=== PATIENT | male | born 1950 | race African-American/Black ===

== ENCOUNTER 2020-12-27 17:09 | Inpatient (IN) | payer OTHER ==
[2020-12-27] MEDS ORDERED: Acetaminophen 325 MG TAB PO PRN (17:57)
[2020-12-27] MEDS ORDERED: Dextrose 50% Abboject 50 ML SYRINGE SLOW IVP PRN (17:57)
[2020-12-27] MEDS ORDERED: Dextrose 5% in Water 1,000 ML IV PRN (17:57)
[2020-12-27] MEDS ORDERED: Ondansetron PF 4 MG/2 ML Vial IVP PRN (17:57)
[2020-12-27] MEDS ORDERED: Nitroglycerin 0.4 MG TAB (25 Tab Bottle) SL PRN (18:01)
[2020-12-27] MEDS ORDERED: hydrALAZINE 20 MG/ML VIAL SLOW IVP PRN (18:21)
[2020-12-27 18:39] VITALS: BMI 25.8
[2020-12-27 20:22] LABS: Troponin I 0.458 ng/mL (< 0.028)
[2020-12-27] MEDS: Pantoprazole 40 MG VIAL IVP SCH (20:40)
[2020-12-27] MEDS: Enoxaparin Sodium 80 MG/0.8 ML SYRINGE SC SCH (20:59)
[2020-12-27 21:07] LABS: INR-International Normal Ratio 0.9; Prothrombin Time 10.5 sec (9.5-12.1)
[2020-12-28 01:06] LABS: Troponin I 1.361 ng/mL (< 0.028)
[2020-12-28 05:02] LABS: #Eosinphils 0.2 10x3/uL (0.0-0.5); #Monocytes 0.8 10x3/uL (0.0-1.1); %Basophils 0.8 % (0.0-2.0); %Eosinophils 4.1 % (0.0-6.0); %Monocytes 14.6 % (0.0-10.0); %Neutrophils 57.3 % (40.0-75.0); Hemoglobin 10.3 g/dL (13.5-17.5); Mean Corpuscular HGB CONC 31.6 g/dL (32.0-36.0); Mean Corpuscular Hemoglobin 27.8 pg (27.0-33.0); Mean Corpuscular Volume 88.1 fl (81.2-95.1); Mean Platelet Volume 9.7 fl (7.4-10.4); Platelet Count 243 10x3/uL (150-450); RBC Distribution Width 13.6 % (11.5-14.5); White Blood Cell (WBC) Count 5.1 10x3/uL (3.5-10.5)
[2020-12-28 05:18] LABS: Anion Gap 12 mmol/L (10-20); BUN (Urea Nitrogen) 17 mg/dL (8.4-25.7); Calc. Creatinine Clearance 50 mL/min (70-130); Calcium 8.8 mg/dL (7.8-10.44); Carbon Dioxide 21 mmol/L (23-31); Chloride 108 mmol/L (98-107); Glucose 279 mg/dL (80-115); Potassium 3.7 mmol/L (3.5-5.1); Sodium 137 mmol/L (136-145)
[2020-12-28 05:43] LABS: Critical Call Chem Troponin I RESULT DECREASING; Troponin I 1.303 ng/mL (< 0.028)
[2020-12-28] MEDS: HumaLOG 300 UNITS/3 ML VIAL SC PRN (06:15)
[2020-12-28] MEDS ORDERED: FLU VACC QS2021-22(65YR UP)/PF 240 MCG/0.7 ML SYRINGE IM ONE (09:00)
[2020-12-28] MEDS: Amlodipine 10 MG TAB PO SCH (09:15)
[2020-12-28] MEDS: Atenolol 25 MG TAB PO SCH ×2 (09:15→20:36)
[2020-12-28] MEDS: Atorvastatin Calcium 40 MG TAB PO SCH (09:16)
[2020-12-28] MEDS: Pantoprazole 40 MG VIAL IVP SCH ×2 (09:17→20:37)
[2020-12-28] MEDS: Ferrous Sulfate 325 MG TAB PO SCH (11:30)
[2020-12-28] MEDS: Enoxaparin Sodium 80 MG/0.8 ML SYRINGE SC SCH ×2 (11:30→20:34)
[2020-12-28] MEDS: Aspirin 81 mg Enteric Coated Tablet PO SCH (11:30)
[2020-12-28] MEDS: Folic Acid 1 MG TAB PO SCH (11:30)
[2020-12-28] MEDS ORDERED: Sodium Chloride 0.9% 1,000 ML IV SCH (12:15)
[2020-12-28] MEDS ORDERED: Communication Order-Pharmacy FS SCH (12:15)
[2020-12-28] MEDS: Sodium Chloride 0.9% 1,000 ML IV SCH (14:15)
[2020-12-28] MEDS: Hydrochlorothiazide 25 MG TAB PO SCH (20:36)
[2020-12-29] MEDS: Sodium Chloride 0.9% 1,000 ML IV SCH ×4 (04:45→20:14)
[2020-12-29 05:42] LABS: #Basophils 0.1 10x3/uL (0.0-0.2); #Eosinphils 0.2 10x3/uL (0.0-0.5); #Monocytes 0.7 10x3/uL (0.0-1.1); #Neutrophils 3.2 10x3/uL (1.5-8.4); %Basophils 1.1 % (0.0-2.0); %Eosinophils 3.9 % (0.0-6.0); %Lymphocytes 25.4 % (18.0-47.0); %Monocytes 12.9 % (0.0-10.0); %Neutrophils 56.3 % (40.0-75.0); Hemoglobin 11.5 g/dL (13.5-17.5); Mean Corpuscular HGB CONC 33.1 g/dL (32.0-36.0); Mean Corpuscular Volume 84.6 fl (81.2-95.1); Mean Platelet Volume 10.1 fl (7.4-10.4); Platelet Count 278 10x3/uL (150-450); RBC Distribution Width 13.8 % (11.5-14.5); White Blood Cell (WBC) Count 5.7 10x3/uL (3.5-10.5)
[2020-12-29 05:54] LABS: PTT 33.2 sec (22.0-33.0); Prothrombin Time 10.6 sec (9.5-12.1)
[2020-12-29 06:06] LABS: ALT (SGPT) 12 U/L (8-55); AST (SGOT) 15 U/L (5-34); Albumin 3.5 g/dL (3.4-4.8); Alkaline Phosphatase 75 U/L (40-110); Anion Gap 14 mmol/L (10-20); BUN (Urea Nitrogen) 16 mg/dL (8.4-25.7); Bilirubin, Total 0.2 mg/dL (0.2-1.2); Calc. Creatinine Clearance 50 mL/min (70-130); Calcium 8.8 mg/dL (7.8-10.44); Carbon Dioxide 20 mmol/L (23-31); Cardiac Risk 7.3 (Less than 4.5); Chloride 107 mmol/L (98-107); Cholesterol 190 mg/dl (< 200 Desired); Globulin 3.6 g/dL (2.4-3.5); Glucose 192 mg/dL (80-115); HDL Cholesterol 26 mg/dL (>60 Neg Risk); Potassium 3.9 mmol/L (3.5-5.1); Protein, Total 7.1 g/dL (5.8-8.1); Sodium 137 mmol/L (136-145); Triglycerides 476 mg/dL (Less than 150)
[2020-12-29] MEDS: glipiZIDE 5 MG TAB PO SCH (07:31)
[2020-12-29] MEDS: Atorvastatin Calcium 40 MG TAB PO SCH (08:58)
[2020-12-29] MEDS: Ferrous Sulfate 325 MG TAB PO SCH (08:58)
[2020-12-29] MEDS: Amlodipine 10 MG TAB PO SCH (08:58)
[2020-12-29] MEDS: Aspirin 81 mg Enteric Coated Tablet PO SCH (08:58)
[2020-12-29] MEDS: Pantoprazole 40 MG VIAL IVP SCH ×2 (08:59→20:44)
[2020-12-29] MEDS: Folic Acid 1 MG TAB PO SCH (08:59)
[2020-12-29] MEDS: Atenolol 25 MG TAB PO SCH ×2 (08:59→20:43)
[2020-12-29] MEDS ORDERED: Nitroglycerin 50 MG/250 ML BOT 250 ML ONE (11:21)
[2020-12-29] MEDS ORDERED: Heparin 10,000 UNITS/ 10 ML VIAL ONE (11:21)
[2020-12-29] MEDS ORDERED: Adenosine 6 MG/2 ML VIAL ONE (11:22)
[2020-12-29] MEDS ORDERED: Lidocaine 1% PF 5 ML VIAL ONE (11:22)
[2020-12-29] MEDS ORDERED: Verapamil 5 MG/2 ML VIAL ONE (11:22)
[2020-12-29] MEDS ORDERED: Sodium Chloride 0.9% 1,000 ML ONE (11:22)
[2020-12-29] MEDS ORDERED: Bivalirudin 250 MG VIAL ONE (11:22)
[2020-12-29] MEDS ORDERED: Midazolam HCl 2 mg/2 ml Vial ONE (13:45)
[2020-12-29] MEDS ORDERED: Fentanyl 100 MCG/2 ML VIAL ONE (13:46)
[2020-12-29] MEDS ORDERED: TICAGRELOR 90 MG TABLET ONE (14:06)
[2020-12-29] MEDS ORDERED: Sodium Chloride 0.9% 200 ML IV PRN (14:22)
[2020-12-29] MEDS ORDERED: Acetaminophen/Codeine 30-300mg Tablet PO PRN ×2 (14:22)
[2020-12-29] MEDS ORDERED: Nitroglycerin 0.4 MG TAB (25 Tab Bottle) SL PRN (14:22)
[2020-12-29] MEDS: HumaLOG 300 UNITS/3 ML VIAL SC PRN ×2 (16:21→21:16)
[2020-12-29] MEDS: TICAGRELOR 90 MG TABLET PO SCH (20:43)
[2020-12-29] MEDS: Hydrochlorothiazide 25 MG TAB PO SCH (20:43)
[2020-12-30] MEDS: HumaLOG 300 UNITS/3 ML VIAL SC PRN (05:09)
[2020-12-30] MEDS: Sodium Chloride 0.9% 1,000 ML IV SCH ×3 (05:13→12:23)
[2020-12-30] MEDS: Atenolol 25 MG TAB PO SCH (07:47)
[2020-12-30] MEDS: Folic Acid 1 MG TAB PO SCH (07:47)
[2020-12-30] MEDS: Ferrous Sulfate 325 MG TAB PO SCH (07:48)
[2020-12-30] MEDS: Aspirin 81 mg Enteric Coated Tablet PO SCH (07:48)
[2020-12-30] MEDS: glipiZIDE 5 MG TAB PO SCH (07:48)
[2020-12-30] MEDS: Atorvastatin Calcium 40 MG TAB PO SCH (07:48)
[2020-12-30] MEDS: Pantoprazole 40 MG VIAL IVP SCH (07:48)
[2020-12-30] MEDS: Amlodipine 10 MG TAB PO SCH (07:48)
[2020-12-30] MEDS: TICAGRELOR 90 MG TABLET PO SCH (07:49)
[2020-12-30 07:57] VITALS: TEMP 98.6
[2020-12-30] MEDS ORDERED: Carvedilol 6.25 MG TAB PO SCH (08:00)
[2020-12-30 08:51] LABS: #Basophils 0.1 10x3/uL (0.0-0.2); #Eosinphils 0.3 10x3/uL (0.0-0.5); #Monocytes 0.7 10x3/uL (0.0-1.1); #Neutrophils 4.2 10x3/uL (1.5-8.4); %Basophils 1.1 % (0.0-2.0); %Eosinophils 4.3 % (0.0-6.0); %Lymphocytes 18.3 % (18.0-47.0); %Neutrophils 64.8 % (40.0-75.0); Hemoglobin 13.2 g/dL (13.5-17.5); Mean Corpuscular HGB CONC 31.8 g/dL (32.0-36.0); Mean Corpuscular Hemoglobin 27.3 pg (27.0-33.0); Mean Corpuscular Volume 85.7 fl (81.2-95.1); Mean Platelet Volume 9.9 fl (7.4-10.4); Platelet Count 316 10x3/uL (150-450); RBC Distribution Width 13.7 % (11.5-14.5); Red Blood Cell (RBC) Count 4.84 10x6/uL (4.32-5.72); White Blood Cell (WBC) Count 6.4 10x3/uL (3.5-10.5)
[2020-12-30] MEDS ORDERED: Clopidogrel Bisulfate 75 MG TAB PO SCH (09:00)
[2020-12-30 09:06] LABS: ALT (SGPT) 16 U/L (8-55); AST (SGOT) 16 U/L (5-34); Albumin 4.1 g/dL (3.4-4.8); Alkaline Phosphatase 83 U/L (40-110); Anion Gap 13 mmol/L (10-20); BUN (Urea Nitrogen) 15 mg/dL (8.4-25.7); Bilirubin, Total 0.3 mg/dL (0.2-1.2); Calc. Creatinine Clearance 48 mL/min (70-130); Calcium 9.7 mg/dL (7.8-10.44); Carbon Dioxide 26 mmol/L (23-31); Chloride 104 mmol/L (98-107); Glucose 98 mg/dL (80-115); Potassium 3.7 mmol/L (3.5-5.1); Protein, Total 8.1 g/dL (5.8-8.1); Sodium 139 mmol/L (136-145)
[2020-12-30 12:01] VITALS: BP 143/67
== END 2020-12-30 14:36 | DRG 247 ==
LOC: EEVIPCON 17:46 → CSHTELE 17:46 → OBSVTOIN 12-28 16:29
PROVIDERS: ADMIT Internal Medicine; ATTEND Internal Medicine
PROC: 027034Z Dilation of Coronary Artery, One Artery with Drug-eluting Intraluminal Device, Percutaneous Approach (ICD-10-PCS; principal; 2020-12-29)
PROC: 4A023N7 Measurement of Cardiac Sampling and Pressure, Left Heart, Percutaneous Approach (ICD-10-PCS; 2020-12-29)
PROC: B2111ZZ Fluoroscopy of Multiple Coronary Arteries using Low Osmolar Contrast (ICD-10-PCS; 2020-12-29)
PROC: B2151ZZ Fluoroscopy of Left Heart using Low Osmolar Contrast (ICD-10-PCS; 2020-12-29)
DX: I21.4 Non-ST elevation (NSTEMI) myocardial infarction (principal); I71.9 Aortic aneurysm of unspecified site, without rupture; E78.5 Hyperlipidemia, unspecified; I12.9 Hypertensive chronic kidney disease with stage 1 through stage 4 chronic kidney disease, or unspecified chronic kidney disease; R10.9 Unspecified abdominal pain; N18.30 Chronic kidney disease, stage 3 unspecified; I25.10 Atherosclerotic heart disease of native coronary artery without angina pectoris; E11.22 Type 2 diabetes mellitus with diabetic chronic kidney disease; Z98.890 Other specified postprocedural states
CPT/HCPCS: 36415; 36416; 76705; 80048; 80053; 80061; 84484; 85025; 85347; 85610; 85730; 92928; 93306; 93458; 94760; 96372; 96374; 96376; 99152; 99153; C1874; C1887; C9113; C9600; G0378; J0153; J0583; J1644; J1650; J1815; J2250; J3010; J7050